=== PATIENT | male | born 1990 | race Caucasian/White ===

== ENCOUNTER 2018-09-02 06:07 | Day surgery (SDC) | payer OTHER ==
[2018-08-27 14:07] LABS: BASOPHILS % (AUTO) 0.4 % (0-1); EOSINOPHILS # (AUTO) 0.1 X10'3 (0-0.9); EOSINOPHILS % (AUTO) 1.1 % (0-6); LYMPHOCYTES # (AUTO) 2.5 X10'3 (1.1-4.8); LYMPHOCYTES % (AUTO) 28.8 % (21-51); MEAN CORPUSCULAR HEMOGLOBIN 30.1 PG (27.0-31.0); MEAN CORPUSCULAR HGB CONC 34.3 g/dL (33.0-36.5); MEAN CORPUSCULAR VOLUME 87.8 FL (78-98); MEAN PLATELET VOLUME 7.9 FL (7.4-10.4); MONOCYTES # (AUTO) 0.7 X10'3 (0-0.9); MONOCYTES % (AUTO) 7.4 % (2-12); NEUTROPHILS # (AUTO) 5.4 X10'3 (1.8-7.7); NEUTROPHILS % (AUTO) 62.3 % (42-75); PRE OP HEMATOCRIT 49.6 % (42.0-52.0); PRE OP PLATELET COUNT 258 X10'3 (140-440); RED BLOOD COUNT 5.66 X10'6 (4.70-6.10); RED CELL DISTRIBUTION WIDTH 13.3 % (11.5-14.5)
[2018-08-27 14:20] LABS: ALBUMIN 4.2 G/DL (3.4-5.0); ALBUMIN/GLOBULIN RATIO 1.6 (1.1-1.5); ALKALINE PHOSPHATASE 84 IU/L (46-116); BLOOD UREA NITROGEN 15 MG/DL (7-18); BUN/CREATININE RATIO 12.5 (5.4-32.0); CHLORIDE 104 MMOL/L (99-107); PRE OP ALT 78 U/L (30-65); PRE OP ANION GAP 4 (8-16); PRE OP AST 38 U/L (10-37); PRE OP BILIRUB, TOTAL 0.6 MG/DL (0.0-1.0); PRE OP GLUCOSE 93 MG/DL (70-104); PRE OP SODIUM 140 MMOL/L (135-145); TOTAL CARBON DIOXIDE 31.8 MMOL/L (24-32); TOTAL PROTEIN 6.8 G/DL (6.4-8.2); eGFR 72 ML/MIN
[~2018-09-02] VITALS: Ht 182.9 cm; Wt 98.0 kg
[2018-09-02] VITALS (9 sets, daily range): BP systolic 121–152; BP diastolic 48–95
[~2018-09-02 06:07] MED LIST: THC INH; famotidine 20mg tablet PO ONE; ringers solution, lacted 1,000 ML IV SCH; vancomycin inj 1,500 MG in normal saline 300ml IV soln IV ONE
[2018-09-02] MEDS ORDERED: cefazolin/dext.iso 2gm/100ml 100 ML IV ONE (07:25)
[2018-09-02] MEDS ORDERED: BUPIVAcaine/PF 2.5mg/ml (0.25%) 10ml vial ONE (08:15)
[2018-09-02] MEDS ORDERED: midazolam 2 mg/2 ml injection ONE (08:15)
[2018-09-02] MEDS ORDERED: fentaNYL /PF 50mcg/ml 5ml ampule ONE (08:16)
[2018-09-02] MEDS ORDERED: sevoflurane 250ml liquid IH ONE (09:10)
[2018-09-02] MEDS ORDERED: ROPIVAcaine 0.5% (5mg/ml) 30ml vial ONE (09:10)
[2018-09-02] MEDS ORDERED: propofol inj 20 ML IV ONE (09:12)
[2018-09-02] MEDS ORDERED: LIDOcaine 2% (20mg/ml) 5ml vial ONE (09:12)
[2018-09-02] MEDS ORDERED: cloNIDine hcl/PF 100mcg/ml inj ONE (10:27)
[2018-09-02] MEDS ORDERED: ringers solution, lacted 1,000 ML IV SCH (10:53)
[2018-09-02] MEDS ORDERED: morphine 4 MG/ML inj SYRINge IV PRN ×2 (10:55)
[2018-09-02] MEDS ORDERED: proCHLORperazine 10 MG/2 ml inj IV PRN (10:55)
[2018-09-02] MEDS ORDERED: meperidine/PF 25mg/ml syringe IV PRN ×3 (10:55)
[2018-09-02] MEDS ORDERED: ondansetron/PF 4mg/2ml inj IV PRN (10:55)
[2018-09-02] MEDS ORDERED: meperidine/PF 50mg/ml syringe ONE (11:07)
[2018-09-02] MEDS ORDERED: HYDROcodone/acetaminophen 10/325mg tab PO PRN (11:40)
--- NOTE | 2018-09-02 11:50 | NUR ---
Received from OR via [facility], accompanied by Anesthesiologist DR STEPHENS, and report given by Anesthesiolgist. PT S/P RIGHT KNEE SCOPE, GENERAL ANESTH, PT HAS RIGHT KNEE WRAP COVERING DRESSING WITH ICE PACK IN PLACE, CDI, PT DENIES ANY PAIN OR NAUSEA, WILL CONTINUE TO ASSESS
--- NOTE | 2018-09-02 13:00 | NUR ---
PT DISCHARGED TO HOME WITH IWFE, DISCHARGE INSTRUCTIONS GIVEN AND READ TO PT AND , BOTH VERB UNDERSTANDING GAVE PT CRUTCHES FOR HOME, VOIDING QS, DC'D PIV, DENIES ANY NASEA, STTES PAIN IS "OKAY" WAITING FOR NAMITA TO "KICK IN" GIVEN APPROX 1250, STATES WANTS TO GO HOME AND BE WITH HIS , DOING WELL ENCOURAGED TO DR REILLY'S OFFICE FOR ANY QUESTIONS OR CONCERNS. LEFT VIA W/C ACCOMPANIED BY AUXILLARY TO PRIVATE VEHICLE.
[2018-09-02] MEDS ORDERED: succinylcholine 20mg/ml inj IV ONE (13:11)
[2018-09-02] MEDS ORDERED: ondansetron/PF 4mg/2ml inj ONE (13:11)
[2018-09-02] MEDS ORDERED: dexamethasone sod phosphate 4mg/ml inj. ONE (13:11)
== END 2018-09-02 13:00 | disposition home or self-care (01) ==
LOC: PAS 06:07
PROVIDERS: ATTEND Orthopaedic Surgery
DX: S83.281A Other tear of lateral meniscus, current injury, right knee, initial encounter (principal); M17.31 Unilateral post-traumatic osteoarthritis, right knee; M22.41 Chondromalacia patellae, right knee; Y92.89 Other specified places as the place of occurrence of the external cause; E66.9 Obesity, unspecified; X58.XXXA Exposure to other specified factors, initial encounter; Y93.89 Activity, other specified; Y99.8 Other external cause status; Z88.0 Allergy status to penicillin; Z72.89 Other problems related to lifestyle; Z68.29 Body mass index [BMI] 29.0-29.9, adult
CPT/HCPCS: 29867; 29881; 36415; 71046; 80053; 82948; 85025; C1713; J0330; J0690; J0735; J1100; J2001; J2175; J2250; J2405; J2704; J3010; J3370; J3490; A6446; A6449; A7000; C9399; J2795; J7030; J7120